=== PATIENT | male | born 1955 | race Caucasian/White ===

== ENCOUNTER 2019-07-08 09:27 | Emergency (ER) | payer MEDICARE, MEDICAID ==
[2019-07-08 10:43] VITALS: BP 146/89
--- NOTE | 2019-07-08 10:55 | UC ---
Lower Extremity/Ankle HPI - HPI Summary HPI Summary: 64 yo male presents with LEFT toe pain. He tells me that for the last 2 days he has had pain at the base of his left great toe. Since that time has noticed redness, increased pain, and swelling. He states that he does drink alcohol quite frequently, but has been cutting back red meat due to recent stent in January 2019. Denies injury or fever. No hx of gout . - History of Current Complaint Chief Complaint: UCLowerExtremity Stated Complaint: FOOT COMPLAINT Time Seen by Provider: 07/08/19 10:54 Hx Obtained From: Patient Onset/Duration: Sudden Onset Severity Initially: Moderate Severity Currently: Moderate Pain Intensity: 8 Pain Scale Used: 0-10 Numeric - Allergies/Home Medications Allergies/Adverse Reactions: Allergies Allergy/AdvReac Type Severity Reaction Status Date / Time MANJULA Inhibitors AdvReac Coughing Verified 07/08/19 10:38 PMH/Surg Hx/FS Hx/Imm Hx - Additional Past Medical History Additional PMH: HIV Endocrine History: Dyslipidemia Cardiovascular History: Hypertension - Surgical History Surgical History: Yes Surgery Procedure, Year, and Place: jaw wiring 1964, toe reattachment 1959, varicose veins 1969. cardiac stents 2018 - Family History Known Family History: Positive: Cardiac Disease - Social History Alcohol Use: Daily Alcohol Amount: 1 24 oz beer a day Substance Use Type: None Smoking Status (MU): Former Smoker Type: Cigarettes, Cigars Have You Smoked in the Last Year: No - Immunization History Most Recent Influenza Vaccination: jan 2018 Most Recent Pneumonia Vaccination: 2017 Review of Systems All Other Systems Reviewed And Are Negative: No Constitutional: Positive: Negative Respiratory: Positive: Negative Cardiovascular: Positive: Negative Musculoskeletal: Positive: Other: - LEFT great toe redness/pain Neurological/Mental Status: Positive: Negative Psychological: Positive: Negative Physical Exam - Summary Physical Exam Summary: GENERAL: NAD. WDWN. No pain distress. SKIN: See MSK CHEST: No accessory muscle use. Breathing comfortably and in no distress. CV: Pulses intact PT and DP. Cap refill <2seconds MSK: LEFT GREAT TOE: Painful ROM at MCP. Moderate erythema and ttp at MCP with mild warm. No open wound. NEURO: Alert. Sensations intact and symmetric B/L LEs PSYCH: Age appropriate behavior. Triage Information Reviewed: Yes Vital Signs: Initial Vital Signs Temp 97.9 F 07/08/19 10:34 Pulse 85 07/08/19 10:34 Resp 20 07/08/19 10:34 BP 146/89 07/08/19 10:34 Pulse Ox 97 07/08/19 10:34 Albuterol HFA INHALER* [Ventolin HFA Inhaler*] 1 - 2 puff INH Q4H PRN 01/14/19 [ History Confirmed 07/08/19] Aspirin EC TAB* [Ecotrin EC Low Dose 81 MG*] 81 mg PO DAILY 01/14/19 [History Confirmed 07/08/19] Emtricitabine/Rilpivirine/Teno [Odefsey Tablet] 1 tab PO DAILY 01/14/19 [ History Confirmed 07/08/19] Isosorbide Mononitrate ER TAB* [Imdur ER TAB*] 120 mg PO DAILY 01/14/19 [ History Confirmed 07/08/19] Losartan TAB* [Cozaar TAB*] 25 mg PO DAILY 01/14/19 [History Confirmed 07/08/19] Metoprolol Tartrate TAB* [Lopressor TAB*] 25 mg PO BEDTIME 01/14/19 [History Confirmed 07/08/19] Metoprolol Tartrate TAB* [Lopressor TAB*] 50 mg PO QAM 01/14/19 [History Confirmed 07/08/19] Multivitamin [Multivitamins] 1 cap PO DAILY 01/14/19 [History Confirmed 07/08/19 ] Nitroglycerin TAB 0.4 MG* 0.4 mg SL Q5M PRN 01/14/19 [History Confirmed 07/08/19 ] Pravastatin Sodium [Pravachol] 80 mg PO DAILY 01/14/19 [History Confirmed ] Ticagrelor* [Brilinta 90 MG*] 90 mg PO BID #60 tab 01/19/19 [Rx Confirmed ] Colchicine* [Colcrys*] 0.6 mg PO TID 3 Days #9 tab 07/08/19 [Rx] predniSONE 20 mg TAB [Deltasone 20 MG TAB*] 40 mg PO DAILY #9 tab 07/08/19 [Rx] Vital Signs Reviewed: Yes Lower Extremity Course/Dx - Course Course Of Treatment: Suspect gout of left first MCP. - Differential Dx/Diagnosis Provider Diagnosis: Gout Discharge ED - Sign-Out/Discharge Documenting (check all that apply): Patient Departure All imaging exams completed and their final reports reviewed: No Studies - Discharge Plan Condition: Stable Disposition: HOME Prescriptions: Colchicine* [Colcrys*] 0.6 mg PO TID 3 Days #9 tab predniSONE 20 mg TAB [Deltasone 20 MG TAB*] 40 mg PO DAILY #9 tab Patient Education Materials: Low Purine Diet (ED), Gout (ED) Referrals: Azar Hyde NP [Primary Care Provider] - Additional Instructions: If you develop a fever, shortness of breath, chest pain, new or worsening symptoms - please call your PCP or go to the ED immediately. Your blood pressure was high at todays visit. Please see your primary provider within 4 weeks for recheck and re-evaluation. - Billing Disposition and Condition Condition: STABLE Disposition: Home
== END 2019-07-08 11:17 | disposition home or self-care (01) ==
LOC: UCEAST 09:27
DX: M10.9 Gout, unspecified (principal); I10 Essential (primary) hypertension; B20 Human immunodeficiency virus [HIV] disease; Z87.891 Personal history of nicotine dependence; Z88.8 Allergy status to other drugs, medicaments and biological substances; Z79.82 Long term (current) use of aspirin
CPT/HCPCS: 99212; G0463

== ENCOUNTER 2022-07-01 19:04 | Inpatient (IN) ==
[2022-07-01 20:12] LABS: ABS Eosinophils 0.1 10^3/ul (0-0.6); ABS Lymphocytes 1.2 10^3/ul (1.0-4.8); ABS Monocytes 0.9 10^3/ul (0-0.8); Eosinophil % 1.4 %; Hematocrit 40 % (42-52); Hemoglobin 13.4 g/dL (14.0-18.0); Lymphocyte % 11.8 %; Mean Corpuscular HGB Conc 34 g/dL (31-36); Mean Corpuscular Hemoglobin 35 pg (27-31); Mean Corpuscular Volume 105 fL (80-94); Mean Platelet Volume 8.8 fL (7.4-10.4); Platelet Count 373 10^3/uL (150-450); Red Cell Distribution Width 13 % (10-15); White Blood Count 10.3 10^3/uL (3.5-10.8)
[2022-07-01 21:01] LABS: ALT 36 U/L (7-52); AST 32 U/L (13-39); Albumin 2.5 g/dL (3.2-5.2); Albumin/Globulin Ratio 0.8 (1-3); Alkaline Phosphatase 89 U/L (35-149); Anion Gap 5 mmol/L (2-11); Blood Urea Nitrogen 20 mg/dL (6-24); C Reactive Protein 138.25 mg/L (<8.01); CO2 Carbon Dioxide 25 mmol/L (22-32); Chloride 101 mmol/L (101-111); Creatinine, Serum 0.98 mg/dL (0.67-1.17); Globulin 3.2 g/dL (2-4); Glucose 136 mg/dL (70-100); Potassium 4.7 mmol/L (3.5-5.0); Sodium 131 mmol/L (135-145); Total Protein 5.7 g/dL (6.4-8.9)
[2022-07-01] MEDS ORDERED: Iohexol 350 (CONTRAST) 500 ML MDV IV ONE (23:11)
[2022-07-02 01:55] LABS: Hepatitis C Antibody Negative (Negative)
[2022-07-02] MEDS ORDERED: cefTRIAXone 1 gm/50 mL D5W 1 GM/50 ML BAG IV ONE (07:27)
[2022-07-02] MEDS ORDERED: Lactated Ringers 1000 ml BAG 1,000 ML IV ONE (07:27)
[2022-07-02] MEDS ORDERED: Albuterol HFA INHALER 8 gm MDI INH PRN (09:10)
[2022-07-02 10:02] LABS: Alcohol, S < 13 mg/dL (<13)
[2022-07-02 10:26] LABS: Vitamin B12 290 pg/mL (180-914)
[2022-07-02] MEDS: Heparin 5000 UNITS/ML 1 mL VIAL SUBCUT SCH ×2 (11:09→20:23)
[2022-07-02 18:34] LABS: Urine Appearance Clear; Urine Bilirubin Negative (Negative); Urine Blood Negative (Negative); Urine Color Straw; Urine Glucose Negative (Negative); Urine Ketones Negative (Negative); Urine Nitrite Negative (Negative); Urine Protein Negative (Negative); Urine Specific Gravity 1.004 (1.002-1.030); Urine Urobilinogen Negative (Negative)
[2022-07-03 06:57] LABS: ABS Eosinophils 0.2 10^3/ul (0-0.6); ABS Monocytes 0.5 10^3/ul (0-0.8); Eosinophil % 2.9 %; Hematocrit 37 % (42-52); Hemoglobin 12.3 g/dL (14.0-18.0); Mean Corpuscular HGB Conc 34 g/dL (31-36); Mean Corpuscular Hemoglobin 35 pg (27-31); Mean Corpuscular Volume 105 fL (80-94); Mean Platelet Volume 8.7 fL (7.4-10.4); Platelet Count 233 10^3/uL (150-450); Red Blood Count 3.47 10^6 /uL (4.18-5.48); Red Cell Distribution Width 13 % (10-15); White Blood Count 5.6 10^3/uL (3.5-10.8)
[2022-07-03 07:15] LABS: Calcium 8.8 mg/dL (8.6-10.3); Creatinine, Serum 0.95 mg/dL (0.67-1.17); Potassium 4.3 mmol/L (3.5-5.0); eGFR CKD-EPI 87.2 (>60)
[2022-07-03 07:30] LABS: TSH Ultra Thyroid Stim Horm 1.41 mcIU/mL (0.34-5.60)
[2022-07-03] MEDS: FLUTICAS/UMECLI/VILANT 100-62.5-25 MDI (NF) INH SCH (07:48)
[2022-07-03] MEDS ORDERED: cefTRIAXone 1 gm/50 mL D5W 1 GM/50 ML BAG IV SCH (09:00)
[2022-07-03] MEDS: PTO:Emtricitabine/Rilpivirine/Teno (Odefsey) 200/25/25 TABLET PO SCH (09:20)
[2022-07-03] MEDS: Aspirin EC 81 mg TAB.EC (enteric coated) PO SCH (09:20)
[2022-07-03] MEDS: Heparin 5000 UNITS/ML 1 mL VIAL SUBCUT SCH (09:21)
[2022-07-03] MEDS: Vitamin THERAPEUTIC TAB PO SCH (09:21)
[2022-07-03] MEDS: Enoxaparin 40 MG/0.4 ML SYR SUBCUT SCH (19:46)
[2022-07-03 19:50] LABS: Ferritin 793.9 ng/mL (24-336)
[2022-07-03 21:37] LABS: Urine Benzodiazepine Screen None Detected (None Detect); Urine Buprenorphine Screen None Detected (None Detect); Urine Cannabinoids Screen None Detected (None Detect); Urine Fentanyl Screen None Detected (None Detect); Urine Hydrocodone Screen None Detected (None Detect); Urine Opiates Screen None Detected (None Detect)
[2022-07-04] MEDS ORDERED: Morphine 2 MG/ML SYRINGE IV ONE (03:21)
[2022-07-04] MEDS: FLUTICAS/UMECLI/VILANT 100-62.5-25 MDI (NF) INH SCH (07:07)
[2022-07-04] MEDS: PTO:Emtricitabine/Rilpivirine/Teno (Odefsey) 200/25/25 TABLET PO SCH (09:29)
[2022-07-04] MEDS: Aspirin EC 81 mg TAB.EC (enteric coated) PO SCH (09:30)
[2022-07-04] MEDS: Vitamin THERAPEUTIC TAB PO SCH (09:31)
[2022-07-04 13:30] LABS: C Reactive Protein 172.94 mg/L (<8.01)
[2022-07-04 18:03] LABS: % CD16+CD56 Cells (NK Cells) 8 % (5-28); 4/8 Ratio 0.6 (>=0.9); CD16+CD56 Count (NK cells) 60 cells/mcL (59-513); CD19 (B Cells) 36 cells/mcL (45-409); CD4 (T Cell) 242 cells/mcL (365-1437); CD8 (T Cell) 416 cells/mcL (80-846); Percent CD19 Cells (B Cells) 5 % (3-24); Percent CD3 Cells (T Cells) 87 % (58-86); Percent CD4 Cell (T Cell) 32 % (32-64); Percent CD8 Cells (T Cells) 55 % (8-40)
[2022-07-04 19:28] LABS: % CD3 86 % (58-86); % CD4 32 % (32-64); % CD8 55 % (8-40); 4/8 H/S Ratio 0.6 (>=0.9); Absolute CD45 Count 0.77 thou/mcL (0.82-2.84); CD3 669 cells/mcL (550-2202); CD4 249 cells/mcL (365-1437); CD8 425 cells/mcL (80-846)
[2022-07-04] MEDS: Enoxaparin 40 MG/0.4 ML SYR SUBCUT SCH (21:07)
[2022-07-05] MEDS: Vitamin THERAPEUTIC TAB PO SCH (07:55)
[2022-07-05] MEDS: Aspirin EC 81 mg TAB.EC (enteric coated) PO SCH (07:55)
[2022-07-05] MEDS: FLUTICAS/UMECLI/VILANT 100-62.5-25 MDI (NF) INH SCH (08:12)
[2022-07-05] MEDS: PTO:Emtricitabine/Rilpivirine/Teno (Odefsey) 200/25/25 TABLET PO SCH (09:03)
[2022-07-05] MEDS: Enoxaparin 40 MG/0.4 ML SYR SUBCUT SCH (20:07)
[2022-07-06] MEDS ORDERED: Lidocaine PATCH 5% PATCH TRANSDERM ONE (02:18)
[2022-07-06] MEDS: FLUTICAS/UMECLI/VILANT 100-62.5-25 MDI (NF) INH SCH (08:16)
[2022-07-06] MEDS: Aspirin EC 81 mg TAB.EC (enteric coated) PO SCH (08:31)
[2022-07-06] MEDS: Vitamin THERAPEUTIC TAB PO SCH (08:31)
[2022-07-06] MEDS: PTO:Emtricitabine/Rilpivirine/Teno (Odefsey) 200/25/25 TABLET PO SCH (08:32)
[2022-07-06 16:28] LABS: HIV-1 RNA (PCR) Undetected copies/mL (Undetected)
[2022-07-06] MEDS: Simethicone SUSP ORALSYR 66.66 MG/ML PO PRN (17:42)
[2022-07-06] MEDS: Enoxaparin 40 MG/0.4 ML SYR SUBCUT SCH (21:14)
[2022-07-07] MEDS: Simethicone SUSP ORALSYR 66.66 MG/ML PO PRN ×2 (06:15→14:14)
[2022-07-07] MEDS: FLUTICAS/UMECLI/VILANT 100-62.5-25 MDI (NF) INH SCH (07:27)
[2022-07-07] MEDS: Aspirin EC 81 mg TAB.EC (enteric coated) PO SCH (08:56)
[2022-07-07] MEDS: Vitamin THERAPEUTIC TAB PO SCH (08:57)
[2022-07-07] MEDS: PTO:Emtricitabine/Rilpivirine/Teno (Odefsey) 200/25/25 TABLET PO SCH (08:57)
[2022-07-07] MEDS: Senna TAB 8.6 mg TAB PO PRN (14:14)
[2022-07-07] MEDS: Enoxaparin 40 MG/0.4 ML SYR SUBCUT SCH (22:03)
[2022-07-08] MEDS: Simethicone SUSP ORALSYR 66.66 MG/ML PO PRN ×2 (00:56→23:53)
[2022-07-08] MEDS: FLUTICAS/UMECLI/VILANT 100-62.5-25 MDI (NF) INH SCH (07:33)
[2022-07-08] MEDS: Psyllium PAK PO PRN (09:50)
[2022-07-08] MEDS: Aspirin EC 81 mg TAB.EC (enteric coated) PO SCH (09:50)
[2022-07-08] MEDS: PTO:Emtricitabine/Rilpivirine/Teno (Odefsey) 200/25/25 TABLET PO SCH (09:50)
[2022-07-08] MEDS: Vitamin THERAPEUTIC TAB PO SCH (09:51)
[2022-07-08] MEDS: Magnesium Hydroxide LIQ 30 ML UDC PO PRN (14:23)
[2022-07-08] MEDS: Enoxaparin 40 MG/0.4 ML SYR SUBCUT SCH (20:29)
[2022-07-08] MEDS ORDERED: Ondansetron 4 mg VIAL 2 MG/ML 2 ml VIAL IV PRN (23:36)
[2022-07-09] MEDS: FLUTICAS/UMECLI/VILANT 100-62.5-25 MDI (NF) INH SCH (08:19)
[2022-07-09] MEDS: Aspirin EC 81 mg TAB.EC (enteric coated) PO SCH (09:02)
[2022-07-09] MEDS: Vitamin THERAPEUTIC TAB PO SCH (09:03)
[2022-07-09] MEDS: PTO:Emtricitabine/Rilpivirine/Teno (Odefsey) 200/25/25 TABLET PO SCH (09:04)
[2022-07-09] MEDS: Collagenase 250 units/gm OINT 1 tube TOPICAL SCH (15:42)
[2022-07-09 16:01] LABS: Cyclic Citrullinated Pept IgG >250.0 U
[2022-07-09] MEDS: Enoxaparin 40 MG/0.4 ML SYR SUBCUT SCH (20:16)
[2022-07-10] MEDS: FLUTICAS/UMECLI/VILANT 100-62.5-25 MDI (NF) INH SCH (07:21)
[2022-07-10] MEDS: Collagenase 250 units/gm OINT 1 tube TOPICAL SCH (09:21)
[2022-07-10] MEDS: PTO:Emtricitabine/Rilpivirine/Teno (Odefsey) 200/25/25 TABLET PO SCH (09:26)
[2022-07-10] MEDS: Aspirin EC 81 mg TAB.EC (enteric coated) PO SCH (09:27)
[2022-07-10] MEDS: Vitamin THERAPEUTIC TAB PO SCH (09:27)
[2022-07-10] MEDS: Enoxaparin 40 MG/0.4 ML SYR SUBCUT SCH (20:31)
[2022-07-11] MEDS: Calcium Carb (TUMS) 500 mg CHEW TAB PO PRN ×3 (05:32→20:50)
[2022-07-11 06:15] LABS: Hematocrit 37 % (42-52); Hemoglobin 12.2 g/dL (14.0-18.0); Mean Platelet Volume 7.7 fL (7.4-10.4); Platelet Count 282 10^3/uL (150-450)
[2022-07-11] MEDS: FLUTICAS/UMECLI/VILANT 100-62.5-25 MDI (NF) INH SCH (08:01)
[2022-07-11] MEDS: PTO:Emtricitabine/Rilpivirine/Teno (Odefsey) 200/25/25 TABLET PO SCH (09:12)
[2022-07-11] MEDS: Vitamin THERAPEUTIC TAB PO SCH (09:12)
[2022-07-11] MEDS: Aspirin EC 81 mg TAB.EC (enteric coated) PO SCH (09:13)
[2022-07-11] MEDS: PAIN RELIEVING RUB (MENTHOL/SALICYLATE) 1 APPLIC TUBE TOPICAL SCH ×2 (12:46→20:18)
[2022-07-11 15:40] LABS: C Reactive Protein 12.31 mg/L (<8.01)
[2022-07-11] MEDS: Collagenase 250 units/gm OINT 1 tube TOPICAL SCH (16:24)
[2022-07-11] MEDS: Enoxaparin 40 MG/0.4 ML SYR SUBCUT SCH (20:18)
[2022-07-12] MEDS: Calcium Carb (TUMS) 500 mg CHEW TAB PO PRN ×3 (01:56→22:19)
[2022-07-12] MEDS: Simethicone SUSP ORALSYR 66.66 MG/ML PO PRN ×2 (01:56→22:19)
[2022-07-12] MEDS: FLUTICAS/UMECLI/VILANT 100-62.5-25 MDI (NF) INH SCH (08:13)
[2022-07-12] MEDS: PTO:Emtricitabine/Rilpivirine/Teno (Odefsey) 200/25/25 TABLET PO SCH (08:55)
[2022-07-12] MEDS: Aspirin EC 81 mg TAB.EC (enteric coated) PO SCH (08:56)
[2022-07-12] MEDS: Vitamin THERAPEUTIC TAB PO SCH (08:57)
[2022-07-12] MEDS: PAIN RELIEVING RUB (MENTHOL/SALICYLATE) 1 APPLIC TUBE TOPICAL SCH ×3 (09:07→22:19)
[2022-07-12] MEDS: Collagenase 250 units/gm OINT 1 tube TOPICAL SCH (09:07)
[2022-07-12 12:23] LABS: Hepatitis B Core IgM Nonreactive (Nonreactive)
[2022-07-12 12:36] LABS: Hepatitis B Surface Ab Immune (Immune)
[2022-07-12] MEDS: Enoxaparin 40 MG/0.4 ML SYR SUBCUT SCH (20:22)
[2022-07-13 08:03] LABS: Calcium 8.6 mg/dL (8.6-10.3); Creatinine, Serum 0.93 mg/dL (0.67-1.17); Potassium 4.5 mmol/L (3.5-5.0); eGFR CKD-EPI 89.4 (>60)
[2022-07-13] MEDS: FLUTICAS/UMECLI/VILANT 100-62.5-25 MDI (NF) INH SCH (08:39)
[2022-07-13] MEDS: Collagenase 250 units/gm OINT 1 tube TOPICAL SCH (09:00)
[2022-07-13] MEDS: PTO:Emtricitabine/Rilpivirine/Teno (Odefsey) 200/25/25 TABLET PO SCH (09:06)
[2022-07-13] MEDS: Vitamin THERAPEUTIC TAB PO SCH (09:07)
[2022-07-13] MEDS: Aspirin EC 81 mg TAB.EC (enteric coated) PO SCH (09:07)
[2022-07-13] MEDS: PAIN RELIEVING RUB (MENTHOL/SALICYLATE) 1 APPLIC TUBE TOPICAL SCH ×2 (09:08→20:49)
[2022-07-13] MEDS: Calcium Carb (TUMS) 500 mg CHEW TAB PO PRN ×2 (18:08→22:34)
[2022-07-13] MEDS: Enoxaparin 40 MG/0.4 ML SYR SUBCUT SCH (20:37)
[2022-07-14] MEDS: Simethicone SUSP ORALSYR 66.66 MG/ML PO PRN ×3 (02:15→20:30)
[2022-07-14] MEDS: FLUTICAS/UMECLI/VILANT 100-62.5-25 MDI (NF) INH SCH (08:33)
[2022-07-14] MEDS: Calcium Carb (TUMS) 500 mg CHEW TAB PO PRN ×3 (09:10→23:11)
[2022-07-14] MEDS: Vitamin THERAPEUTIC TAB PO SCH (09:11)
[2022-07-14] MEDS: Aspirin EC 81 mg TAB.EC (enteric coated) PO SCH (09:11)
[2022-07-14] MEDS: PAIN RELIEVING RUB (MENTHOL/SALICYLATE) 1 APPLIC TUBE TOPICAL SCH ×2 (09:11→20:30)
[2022-07-14] MEDS: PTO:Emtricitabine/Rilpivirine/Teno (Odefsey) 200/25/25 TABLET PO SCH (09:11)
[2022-07-14 13:49] LABS: TB1 Ag minus Nil Result 0.02 IU/mL; TB2 Ag minus Nil Result 0.03 IU/mL
[2022-07-14 13:52] LABS: QuantiferonTb Gold Plus Result Negative (Negative)
[2022-07-14] MEDS: Collagenase 250 units/gm OINT 1 tube TOPICAL SCH (17:51)
[2022-07-14] MEDS: Enoxaparin 40 MG/0.4 ML SYR SUBCUT SCH (20:20)
[2022-07-14] MEDS: Senna TAB 8.6 mg TAB PO PRN (20:30)
[2022-07-15] MEDS: Calcium Carb (TUMS) 500 mg CHEW TAB PO PRN ×2 (03:30→21:11)
[2022-07-15] MEDS: FLUTICAS/UMECLI/VILANT 100-62.5-25 MDI (NF) INH SCH (08:08)
[2022-07-15] MEDS: Vitamin THERAPEUTIC TAB PO SCH (10:02)
[2022-07-15] MEDS: PTO:Emtricitabine/Rilpivirine/Teno (Odefsey) 200/25/25 TABLET PO SCH (10:02)
[2022-07-15] MEDS: Aspirin EC 81 mg TAB.EC (enteric coated) PO SCH (10:02)
[2022-07-15] MEDS: PAIN RELIEVING RUB (MENTHOL/SALICYLATE) 1 APPLIC TUBE TOPICAL SCH ×3 (10:03→21:18)
[2022-07-15] MEDS: Collagenase 250 units/gm OINT 1 tube TOPICAL SCH (10:19)
[2022-07-15] MEDS: Enoxaparin 40 MG/0.4 ML SYR SUBCUT SCH (21:06)
[2022-07-16] MEDS: Calcium Carb (TUMS) 500 mg CHEW TAB PO PRN (05:20)
[2022-07-16] MEDS: FLUTICAS/UMECLI/VILANT 100-62.5-25 MDI (NF) INH SCH (07:14)
[2022-07-16] MEDS: PTO:Emtricitabine/Rilpivirine/Teno (Odefsey) 200/25/25 TABLET PO SCH (08:24)
[2022-07-16] MEDS: Aspirin EC 81 mg TAB.EC (enteric coated) PO SCH (08:25)
[2022-07-16] MEDS: Psyllium PAK PO PRN (08:25)
[2022-07-16] MEDS: Magnesium Hydroxide LIQ 30 ML UDC PO PRN (08:25)
[2022-07-16] MEDS: Vitamin THERAPEUTIC TAB PO SCH (08:25)
[2022-07-16] MEDS: PAIN RELIEVING RUB (MENTHOL/SALICYLATE) 1 APPLIC TUBE TOPICAL SCH ×2 (11:27→20:59)
[2022-07-16] MEDS: Collagenase 250 units/gm OINT 1 tube TOPICAL SCH (11:32)
[2022-07-16] MEDS: Enoxaparin 40 MG/0.4 ML SYR SUBCUT SCH (20:59)
[2022-07-16] MEDS: Senna TAB 8.6 mg TAB PO PRN (20:59)
[2022-07-17] MEDS: FLUTICAS/UMECLI/VILANT 100-62.5-25 MDI (NF) INH SCH (07:35)
[2022-07-17] MEDS: PTO:Emtricitabine/Rilpivirine/Teno (Odefsey) 200/25/25 TABLET PO SCH (08:55)
[2022-07-17] MEDS: PAIN RELIEVING RUB (MENTHOL/SALICYLATE) 1 APPLIC TUBE TOPICAL SCH ×3 (08:55→20:26)
[2022-07-17] MEDS: Aspirin EC 81 mg TAB.EC (enteric coated) PO SCH (08:56)
[2022-07-17] MEDS: Vitamin THERAPEUTIC TAB PO SCH (08:56)
[2022-07-17] MEDS: Collagenase 250 units/gm OINT 1 tube TOPICAL SCH (08:57)
[2022-07-17] MEDS: Senna TAB 8.6 mg TAB PO PRN (20:22)
[2022-07-17] MEDS: Enoxaparin 40 MG/0.4 ML SYR SUBCUT SCH (20:25)
[2022-07-18] MEDS: FLUTICAS/UMECLI/VILANT 100-62.5-25 MDI (NF) INH SCH (07:32)
[2022-07-18] MEDS: PAIN RELIEVING RUB (MENTHOL/SALICYLATE) 1 APPLIC TUBE TOPICAL SCH ×3 (08:08→22:36)
[2022-07-18] MEDS: PTO:Emtricitabine/Rilpivirine/Teno (Odefsey) 200/25/25 TABLET PO SCH (08:08)
[2022-07-18] MEDS: Vitamin THERAPEUTIC TAB PO SCH (08:09)
[2022-07-18] MEDS: Collagenase 250 units/gm OINT 1 tube TOPICAL SCH (08:11)
[2022-07-18] MEDS: Aspirin EC 81 mg TAB.EC (enteric coated) PO SCH (08:11)
[2022-07-18] MEDS: Enoxaparin 40 MG/0.4 ML SYR SUBCUT SCH (22:37)
[2022-07-19] MEDS: FLUTICAS/UMECLI/VILANT 100-62.5-25 MDI (NF) INH SCH (07:36)
[2022-07-19] MEDS: Aspirin EC 81 mg TAB.EC (enteric coated) PO SCH (09:09)
[2022-07-19] MEDS: Vitamin THERAPEUTIC TAB PO SCH (09:10)
[2022-07-19] MEDS: PTO:Emtricitabine/Rilpivirine/Teno (Odefsey) 200/25/25 TABLET PO SCH (09:12)
[2022-07-19 10:01] VITALS: BP 126/82
== END 2022-07-19 10:15 | disposition swing bed (61) | DRG 546 ==
LOC: ED 19:04 → EDHOLD 19:04 → SUATTDRO 07-02 08:49 → EDHOLD 07-02 13:56 → MED 07-02 14:39 → SUATTDRO 07-04 07:00
PROVIDERS: ADMIT Internal Medicine; ATTEND Internal Medicine

== ENCOUNTER 2022-07-19 10:40 | Inpatient (IN) ==
[2022-07-19] MEDS ORDERED: Magnesium Hydroxide LIQ 30 ML UDC PO PRN (11:21)
[2022-07-19] MEDS ORDERED: Albuterol 2.5mg/3 ml (0.083%) NEB.SOLN INH PRN (11:30)
[2022-07-19] MEDS ORDERED: Albuterol HFA INHALER 8 gm MDI INH PRN (11:30)
[2022-07-19] MEDS: PAIN RELIEVING RUB (MENTHOL/SALICYLATE) 1 APPLIC TUBE TOPICAL PRN (21:41)
[2022-07-19] MEDS: Enoxaparin 40 MG/0.4 ML SYR SUBCUT SCH (21:42)
[2022-07-20] MEDS: CMCS: FLUTICAS/UMECLI/VILANT 100-62.5-25 MDI (NF) INH SCH (07:33)
[2022-07-20] MEDS: Multivitamins/Minerals TAB PO SCH (07:54)
[2022-07-20] MEDS: Aspirin EC 81 mg TAB.EC (enteric coated) PO SCH (07:55)
[2022-07-20] MEDS: PAIN RELIEVING RUB (MENTHOL/SALICYLATE) 1 APPLIC TUBE TOPICAL PRN ×2 (07:58→18:18)
[2022-07-20] MEDS: Collagenase 250 units/gm OINT 1 tube TOPICAL SCH (08:07)
[2022-07-20] MEDS: PTO:Emtricitabine/Rilpivirine/Teno (Odefsey) 200/25/25 TABLET PO SCH (08:07)
[2022-07-20] MEDS: Enoxaparin 40 MG/0.4 ML SYR SUBCUT SCH (20:51)
[2022-07-21] MEDS: PAIN RELIEVING RUB (MENTHOL/SALICYLATE) 1 APPLIC TUBE TOPICAL PRN ×2 (03:55→11:34)
[2022-07-21] MEDS: CMCS: FLUTICAS/UMECLI/VILANT 100-62.5-25 MDI (NF) INH SCH (07:36)
[2022-07-21] MEDS: Aspirin EC 81 mg TAB.EC (enteric coated) PO SCH (09:39)
[2022-07-21] MEDS: Multivitamins/Minerals TAB PO SCH (09:39)
[2022-07-21] MEDS: PTO:Emtricitabine/Rilpivirine/Teno (Odefsey) 200/25/25 TABLET PO SCH (09:41)
[2022-07-21] MEDS: Collagenase 250 units/gm OINT 1 tube TOPICAL SCH (09:41)
[2022-07-21] MEDS: Enoxaparin 40 MG/0.4 ML SYR SUBCUT SCH (22:12)
[2022-07-22] MEDS: CMCS: FLUTICAS/UMECLI/VILANT 100-62.5-25 MDI (NF) INH SCH (07:16)
[2022-07-22] MEDS: Collagenase 250 units/gm OINT 1 tube TOPICAL SCH (17:11)
[2022-07-22] MEDS: PAIN RELIEVING RUB (MENTHOL/SALICYLATE) 1 APPLIC TUBE TOPICAL PRN (17:11)
[2022-07-22] MEDS: PTO:Emtricitabine/Rilpivirine/Teno (Odefsey) 200/25/25 TABLET PO SCH (17:12)
[2022-07-22] MEDS: Aspirin EC 81 mg TAB.EC (enteric coated) PO SCH (17:13)
[2022-07-22] MEDS: Multivitamins/Minerals TAB PO SCH (17:13)
[2022-07-22] MEDS: Enoxaparin 40 MG/0.4 ML SYR SUBCUT SCH (22:09)
[2022-07-23] MEDS: CMCS: FLUTICAS/UMECLI/VILANT 100-62.5-25 MDI (NF) INH SCH (09:07)
[2022-07-23] MEDS: Aspirin EC 81 mg TAB.EC (enteric coated) PO SCH (10:47)
[2022-07-23] MEDS: Multivitamins/Minerals TAB PO SCH (10:49)
[2022-07-23] MEDS: PTO:Emtricitabine/Rilpivirine/Teno (Odefsey) 200/25/25 TABLET PO SCH (10:59)
[2022-07-23] MEDS: Collagenase 250 units/gm OINT 1 tube TOPICAL SCH (12:55)
[2022-07-23] MEDS: PAIN RELIEVING RUB (MENTHOL/SALICYLATE) 1 APPLIC TUBE TOPICAL PRN (15:42)
[2022-07-23] MEDS: Enoxaparin 40 MG/0.4 ML SYR SUBCUT SCH (21:16)
[2022-07-24] MEDS: PAIN RELIEVING RUB (MENTHOL/SALICYLATE) 1 APPLIC TUBE TOPICAL PRN (04:35)
[2022-07-24] MEDS: CMCS: FLUTICAS/UMECLI/VILANT 100-62.5-25 MDI (NF) INH SCH (07:15)
[2022-07-24] MEDS: PTO:Emtricitabine/Rilpivirine/Teno (Odefsey) 200/25/25 TABLET PO SCH (09:35)
[2022-07-24] MEDS: Aspirin EC 81 mg TAB.EC (enteric coated) PO SCH (09:36)
[2022-07-24] MEDS: Multivitamins/Minerals TAB PO SCH (09:36)
[2022-07-24] MEDS: Collagenase 250 units/gm OINT 1 tube TOPICAL SCH ×2 (09:38→16:16)
[2022-07-24] MEDS: Senna TAB 8.6 mg TAB PO PRN (22:10)
[2022-07-24] MEDS: Enoxaparin 40 MG/0.4 ML SYR SUBCUT SCH (22:11)
[2022-07-25] MEDS: CMCS: FLUTICAS/UMECLI/VILANT 100-62.5-25 MDI (NF) INH SCH (07:27)
[2022-07-25] MEDS: PTO:Emtricitabine/Rilpivirine/Teno (Odefsey) 200/25/25 TABLET PO SCH (09:36)
[2022-07-25] MEDS: Aspirin EC 81 mg TAB.EC (enteric coated) PO SCH (09:39)
[2022-07-25] MEDS: Collagenase 250 units/gm OINT 1 tube TOPICAL SCH (09:40)
[2022-07-25] MEDS: Multivitamins/Minerals TAB PO SCH (09:40)
[2022-07-25] MEDS: PAIN RELIEVING RUB (MENTHOL/SALICYLATE) 1 APPLIC TUBE TOPICAL PRN (09:41)
[2022-07-25] MEDS: Senna TAB 8.6 mg TAB PO PRN (20:51)
[2022-07-25] MEDS: Enoxaparin 40 MG/0.4 ML SYR SUBCUT SCH (20:55)
[2022-07-26 06:22] VITALS: BP 126/78
[2022-07-26] MEDS: CMCS: FLUTICAS/UMECLI/VILANT 100-62.5-25 MDI (NF) INH SCH (07:52)
[2022-07-26] MEDS: Collagenase 250 units/gm OINT 1 tube TOPICAL SCH (09:22)
[2022-07-26] MEDS: PTO:Emtricitabine/Rilpivirine/Teno (Odefsey) 200/25/25 TABLET PO SCH (09:22)
[2022-07-26] MEDS: Aspirin EC 81 mg TAB.EC (enteric coated) PO SCH (09:23)
[2022-07-26] MEDS: Multivitamins/Minerals TAB PO SCH (09:23)
[2022-07-26] MEDS: PAIN RELIEVING RUB (MENTHOL/SALICYLATE) 1 APPLIC TUBE TOPICAL PRN (09:24)
== END 2022-07-26 15:15 | disposition home or self-care (01) | DRG 546 ==
LOC: SUATTDRO 10:53 → MED 10:53
PROVIDERS: ADMIT Internal Medicine; ATTEND Internal Medicine

== ENCOUNTER 2023-10-29 11:20 | Observation (INO) ==
[2023-10-29 11:55] LABS: ABS Basophils 0.1 10^3/uL (0.0-0.1); ABS Eosinophils 0.1 10^3/uL (0.0-0.5); ABS Lymphocytes 1.3 10^3/uL (1.0-4.8); ABS Monocytes 0.5 10^3/uL (0.0-1.1); ABS Neutrophils 3.5 10^3/uL (1.5-7.6); ABS Nucleated RBC 0.01 10^3/ul; Eosinophil % 2.2 %; Hematocrit 46.2 % (38-53); Hemoglobin 15.4 g/dL (13.2-16.3); Lymphocyte % 23.3 %; Mean Corpuscular Hemoglobin 34.4 pg (27-33); Mean Corpuscular Hgb Conc 33.4 g/dL (31-36); Mean Corpuscular Volume 103.2 fL (80-97); Mean Platelet Volume 7.6 fL (7.5-11.2); Nucleated Red Blood Cells % 0.2 %/100WBC (0.0-0.8); Platelet Count 167 10^3/uL (150-450); Red Blood Count 4.47 10^6/uL (4.06-5.63); Red Cell Distribution Width 15.7 % (12-17); White Blood Count 5.4 10^3/uL (3.6-10.2)
[2023-10-29 12:04] LABS: INR 0.97 (0.83-1.13)
[2023-10-29] MEDS: Albuterol HFA INHALER 8 gm MDI INH ONE (12:29)
[2023-10-29] MEDS ORDERED: Lorazepam PYXIS KEY PRN (12:59)
[2023-10-29] MEDS: Labetalol IV 5 MG/ML 20 ml VIAL IV PUSH ONE ×3 (13:00→17:07)
[2023-10-29 13:02] LABS: Albumin 4.6 g/dL (3.2-5.2); Albumin/Globulin Ratio 1.4 (1-3); Calcium 9.1 mg/dL (8.6-10.3); Creatinine, Serum 1.24 mg/dL (0.67-1.17); Globulin 3.2 g/dL (2-4); Magnesium 1.6 mg/dL (1.9-2.7); Potassium 4.4 mmol/L (3.5-5.0); Total Bilirubin 1.2 mg/dL (0.2-1.0); Total Protein 7.8 g/dL (6.4-8.9); eGFR CKD-EPI 62.9 (>60)
[2023-10-29] MEDS: LORazepam 2 MG/ML 1 mL Syringe IV ONE (13:16)
[2023-10-29 13:28] LABS: TSH Ultra Thyroid Stim Horm 2.29 mcIU/mL (0.34-5.60)
[2023-10-29 13:41] LABS: Alcohol, S < 13 mg/dL (<13); Magnesium 1.5 mg/dL (1.9-2.7)
[2023-10-29] MEDS: Iohexol 350 (CONTRAST) 500 ML MDV IV ONE (13:47)
[2023-10-29] MEDS: LORazepam 2 mg VIAL 1 ml IV PUSH ONE (13:48)
[2023-10-29] MEDS: NS 0.9% 1000 ml BAG 1,000 ML IV ONE (13:49)
[2023-10-29 14:07] LABS: High Sensitivity Troponin 1 Hr 22 pg/mL (<20)
[2023-10-29] MEDS: Magnesium Sulfate 2 gm BAG 2 GM/50 ML BAG IVPB ONE (14:48)
[2023-10-29 17:53] LABS: Urine Appearance Clear; Urine Bilirubin Negative (Negative); Urine Blood Trace (Negative); Urine Color Light-Yellow; Urine Glucose Negative (Negative); Urine Ketones 1+ (Negative); Urine Nitrite Negative (Negative); Urine Protein Trace (Negative); Urine Specific Gravity >1.050 (1.002-1.030); Urine Urobilinogen Negative (Negative); Urine pH 6.5 (5.0-8.0)
[2023-10-29 18:17] LABS: Urine Benzodiazepine Screen None Detected (None Detect); Urine Buprenorphine Screen None Detected (None Detect); Urine Cannabinoids Screen None Detected (None Detect); Urine Fentanyl Screen None Detected (None Detect); Urine Hydrocodone Screen None Detected (None Detect); Urine Opiates Screen None Detected (None Detect)
[2023-10-29] MEDS: Thiamine 100 MG/ML 2 ml VIAL (200 mg) IM ONE (18:41)
[2023-10-29] MEDS: Multivitamins/Minerals TAB PO SCH (20:07)
[2023-10-29] MEDS: Heparin 5000 UNITS/ML 1 mL VIAL SUBCUT SCH (20:09)
[2023-10-29] MEDS: hydrALAZINE 20 mg/ml 1 ML Vial IV IV SLOW PU PRN (20:54)
[2023-10-29] MEDS: Albuterol HFA INHALER 8 gm MDI INH PRN (20:58)
[2023-10-30] MEDS: RILPIVIRINE PO ONE (03:31)
[2023-10-30] MEDS: EMTRICITABINE PO ONE (03:31)
[2023-10-30] MEDS: [UNRECOGNIZED DRUG - OTHER] PO ONE (03:31)
[2023-10-30 06:58] LABS: Hematocrit 37.7 % (38-53); Hemoglobin 13.2 g/dL (13.2-16.3); Mean Corpuscular Hemoglobin 35.7 pg (27-33); Mean Corpuscular Hgb Conc 34.9 g/dL (31-36); Mean Corpuscular Volume 102.4 fL (80-97); Mean Platelet Volume 7.5 fL (7.5-11.2); Platelet Count 137 10^3/uL (150-450); Red Blood Count 3.68 10^6/uL (4.06-5.63); White Blood Count 3.6 10^3/uL (3.6-10.2)
[2023-10-30 07:37] LABS: Calcium 8.5 mg/dL (8.6-10.3); Creatinine, Serum 1.13 mg/dL (0.67-1.17); Potassium 3.8 mmol/L (3.5-5.0); eGFR CKD-EPI 70.4 (>60)
[2023-10-30] MEDS ORDERED: NON FORMULARY MED (Multivitamin Tablet) PO SCH (09:00)
[2023-10-30] MEDS: Aspirin EC 81 mg TAB.EC (enteric coated) PO SCH (10:00)
[2023-10-30] MEDS: CMCS: FLUTICAS/UMECLI/VILANT 100-62.5-25 MDI (NF) INH SCH (10:01)
[2023-10-30 13:37] VITALS: BP 146/82
== END 2023-10-30 14:01 | disposition home or self-care (01) ==
LOC: ED 11:20 → EDHOLD 11:20
PROVIDERS: ADMIT Internal Medicine; ATTEND Internal Medicine

== ENCOUNTER 2024-06-21 20:05 | Observation (INO) ==
[2024-06-21 20:39] LABS: ABS Basophils 0.1 10^3/uL (0.0-0.1); ABS Eosinophils 0.6 10^3/uL (0.0-0.5); ABS Lymphocytes 4.4 10^3/uL (1.0-4.8); ABS Monocytes 0.8 10^3/uL (0.0-1.1); ABS Neutrophils 3.4 10^3/uL (1.5-7.6); Eosinophil % 6.2 %; Hematocrit 42.1 % (38-53); Hemoglobin 14.5 g/dL (13.2-16.3); Lymphocyte % 47.2 %; Mean Corpuscular Hemoglobin 35.8 pg (27-33); Mean Corpuscular Hgb Conc 34.5 g/dL (31-36); Mean Corpuscular Volume 103.7 fL (80-97); Mean Platelet Volume 8.2 fL (7.5-11.2); Platelet Count 223 10^3/uL (150-450); Red Blood Count 4.06 10^6/uL (4.06-5.63); Red Cell Distribution Width 14.9 % (12-17); White Blood Count 9.2 10^3/uL (3.6-10.2)
[2024-06-21] MEDS: NS 0.9% 1000 ml BAG 1,000 ML IV ONE (20:54)
[2024-06-21 21:02] LABS: Albumin 4.1 g/dL (3.5-5.7); Albumin/Globulin Ratio 1.5 (1-3); Calcium 9.1 mg/dL (8.6-10.3); Creatinine, Serum 2.18 mg/dL (0.67-1.17); Globulin 2.7 g/dL (2-4); Magnesium 1.8 mg/dL (1.9-2.7); Potassium 4.1 mmol/L (3.5-5.0); Total Bilirubin 0.5 mg/dL (0.2-1.0); Total Protein 6.8 g/dL (6.4-8.9); eGFR CKD-EPI 31.8 (>60)
[2024-06-21] MEDS: Iodixanol 320 (CONTRAST) 100 ML SDV IV ONE (21:29)
[2024-06-21 22:21] LABS: High Sensitivity Troponin 1 Hr 25 pg/mL (<20)
[2024-06-21] MEDS: Lactated Ringers 1000 ml BAG 1,000 ML IV ONE (23:01)
[2024-06-22] MEDS ORDERED: Albuterol HFA INHALER 8 gm MDI INH PRN (03:16)
[2024-06-22 04:27] LABS: C Reactive Protein 4.47 mg/L (<8.01)
[2024-06-22 05:18] LABS: Erythrocyte Sed Rate 11 mm/Hr (0-19)
[2024-06-22 05:22] LABS: Urine Appearance Clear; Urine Bacteria Absent /HPF (Absent); Urine Bilirubin Negative (Negative); Urine Blood Negative (Negative); Urine Color Yellow; Urine Glucose Negative (Negative); Urine Ketones 1+ (Negative); Urine Nitrite Negative (Negative); Urine Protein Trace (Negative); Urine Red Blood Cell Absent /HPF (0-Trace); Urine Specific Gravity >1.050 (1.002-1.030); Urine Urobilinogen Negative (Negative); Urine White Blood Cell Trace(0-5/hpf) /HPF (0-Trace)
[2024-06-22] MEDS: Magnesium Sulfate 2 gm BAG 2 GM/50 ML BAG IVPB ONE ×2 (05:58→14:34)
[2024-06-22] MEDS ORDERED: Sulfur Hexaflouride MICROSPHR 25 MG VIAL IV PRN (06:00)
[2024-06-22] MEDS: Famotidine IV 10 MG/ML 2 ml VIAL (20 mg) IV SLOW PU ONE (06:02)
[2024-06-22] MEDS: Labetalol IV 5 MG/ML 20 ml VIAL IV PUSH PRN (06:24)
[2024-06-22 06:29] LABS: ABS Basophils 0.1 10^3/uL (0.0-0.1); ABS Eosinophils 0.3 10^3/uL (0.0-0.5); ABS Lymphocytes 1.6 10^3/uL (1.0-4.8); ABS Monocytes 0.7 10^3/uL (0.0-1.1); ABS Nucleated RBC 0.03 10^3/ul; Eosinophil % 4.3 %; Hematocrit 42.3 % (38-53); Hemoglobin 14.6 g/dL (13.2-16.3); Lymphocyte % 24.5 %; Mean Corpuscular Hemoglobin 35.8 pg (27-33); Mean Corpuscular Hgb Conc 34.5 g/dL (31-36); Mean Corpuscular Volume 103.7 fL (80-97); Mean Platelet Volume 8.7 fL (7.5-11.2); Nucleated Red Blood Cells % 0.4 %/100WBC (0.0-0.8); Platelet Count 166 10^3/uL (150-450); Red Blood Count 4.08 10^6/uL (4.06-5.63); Red Cell Distribution Width 14.9 % (12-17); White Blood Count 6.7 10^3/uL (3.6-10.2)
[2024-06-22 06:56] LABS: Calcium 8.8 mg/dL (8.6-10.3); Creatinine, Serum 1.83 mg/dL (0.67-1.17); Magnesium 1.6 mg/dL (1.9-2.7); Phosphorus 2.6 mg/dL (2.5-5.0); Potassium 4.6 mmol/L (3.5-5.0); eGFR CKD-EPI 39.2 (>60)
[2024-06-22 07:21] LABS: Folate 7.82 ng/mL (5.90-24.80)
[2024-06-22] MEDS: CMCS: FLUTICAS/UMECLI/VILANT 100-62.5-25 MDI (NF) INH SCH (07:29)
[2024-06-22 08:47] LABS: High Sensitivity Troponin 1 Hr 37 pg/mL (<20)
[2024-06-22] MEDS ORDERED: Regadenoson 0.4 MG/5 ML SYRINGE ONE (10:19)
[2024-06-22] MEDS: hydrALAZINE 20 mg/ml 1 ML Vial IV IV SLOW PU ONE (10:36)
[2024-06-22] MEDS: Multivitamins/Minerals TAB PO SCH (11:16)
[2024-06-22] MEDS: DOLUTEGRAVIR RILPIVIRINE PO SCH (11:17)
[2024-06-22] MEDS: Cyanocobalamin INJ 1,000 MCG/ML VIAL 1 ML VIAL IM ONE (11:17)
[2024-06-22] MEDS: Aspirin EC 81 mg TAB.EC (enteric coated) PO SCH (11:17)
[2024-06-22 20:35] LABS: HDL Cholesterol 62.7 mg/dL
[2024-06-22 21:04] LABS: TSH Ultra Thyroid Stim Horm 2.88 mcIU/mL (0.34-5.60)
[2024-06-23] MEDS: hydrALAZINE 20 mg/ml 1 ML Vial IV IV SLOW PU PRN (02:10)
[2024-06-23] MEDS: hydrALAZINE 20 mg/ml 1 ML Vial IV IV SLOW PU ONE (06:02)
[2024-06-23 06:27] LABS: ABS Basophils 0.1 10^3/uL (0.0-0.1); ABS Eosinophils 0.3 10^3/uL (0.0-0.5); ABS Lymphocytes 1.5 10^3/uL (1.0-4.8); ABS Monocytes 0.6 10^3/uL (0.0-1.1); ABS Neutrophils 2.5 10^3/uL (1.5-7.6); Eosinophil % 6.8 %; Hematocrit 40.9 % (38-53); Hemoglobin 14.5 g/dL (13.2-16.3); Lymphocyte % 30.9 %; Mean Corpuscular Hemoglobin 36.1 pg (27-33); Mean Corpuscular Hgb Conc 35.4 g/dL (31-36); Mean Corpuscular Volume 101.9 fL (80-97); Mean Platelet Volume 8.5 fL (7.5-11.2); Nucleated Red Blood Cells % 0.1 %/100WBC (0.0-0.8); Platelet Count 157 10^3/uL (150-450); Red Blood Count 4.01 10^6/uL (4.06-5.63); Red Cell Distribution Width 14.9 % (12-17)
[2024-06-23 06:49] LABS: Calcium 8.9 mg/dL (8.6-10.3); Creatinine, Serum 1.35 mg/dL (0.67-1.17); Magnesium 1.9 mg/dL (1.9-2.7); Potassium 4.2 mmol/L (3.5-5.0); eGFR CKD-EPI 56.5 (>60)
[2024-06-24 09:58] VITALS: BP 172/104
== END 2024-06-24 12:38 | disposition home or self-care (01) ==
LOC: EDHOLD 20:05 → ED 20:05 → SUATTDRO 06-22 02:00 → EDHOLD 06-22 03:09 → MEDTELE 06-22 03:52
PROVIDERS: ADMIT Student in an Organized Health Care Education/Training Program; ATTEND Internal Medicine